=== PATIENT | male | born 1945 | race Caucasian/White ===

== ENCOUNTER 2018-05-23 06:57 | Day surgery (SDC) ==
[2018-05-23] MEDS ORDERED: LIDOCAINE 1% 20 ML MDV ID STA (07:17)
[2018-05-23] MEDS ORDERED: LIDOCAINE HCL 2% LUER-JET ONE (08:05)
[2018-05-23] MEDS ORDERED: VERSED ONE (08:05)
[2018-05-23] MEDS ORDERED: DIPRIVAN 20 ML VIAL IVP ONE (08:05)
[2018-05-23 09:39] VITALS: BP 122/56; TEMP 98.6
--- NOTE | 2018-05-24 07:39 | OP ---
PROCEDURE: EGD (ESOPHAGOGASTRODUODENOSCOPY) WITH TAPIA DILATATION. ENDOSCOPIST: Teresa ROSEN M.D. INDICATION: DYSPHAGIA INSTRUMENT: [id number]. TAPIA DILATOR 50 PERSIAN MEDICATION: PER ANESTHESIA. PROCEDURE: The patient was positioned for endoscopy. The oropharynx was sprayed with Cetacaine spray and the endoscope was advanced through the bite block into the esophagus and from there advanced to the duodenum. The duodenum was normal. The pylorus was patent. The antrum was normal. Retroflex exam reveals normal cardia. The Z-line was at 40cm. No evidence for mass or strictures. The remaining esophagus was normal. A 50 [place] Tapia was passed without difficulty. The patient tolerated the procedure well without immediate complications. PLAN: 1. If continues with symptoms will get a Barium Esophagram 2. Consider esophageal motility testing as well. Suspect this is a esophageal dysmotility issue. CC: Dr. Edi RYAN
== END 2018-05-23 09:00 | disposition home or self-care (01) ==
LOC: SURG 06:57
PROVIDERS: ATTEND Internal Medicine Gastroenterology
DX: R13.10 Dysphagia, unspecified (principal)

== ENCOUNTER 2019-02-02 08:34 | Outpatient (RCR) | payer OTHER ==
--- NOTE | 2019-02-02 15:59 | RS.OPPTEV2 ---
Date of Note: 02/02/19 Visit #: 1 Number of visits approved by Insurance: n/a Date of Evaluation: 02/02/19 Payer Source: MEDICARE Surgery Performed?: No Treatment Diagnosis: BLE pain, muscle weakness, balance impaired History of Condition/Mechanism of Injury:: Pain in BLE's began approx oct 2018. Pain is from buttocks to calf BLE L worse than RLE. No definite injury noted. Prior Level of Function.....Patient was independent with: ADL's, Self Care, Ambulation/Mobility, Community Integration/Access Functional Limitations: Ambulation, Community Access/Integration Current Subjective/complaints:: pt states that he doesn't know why MD sent him for low back, states his back does not hurt that it is his legs and they only hurt when he walks. pt voiced frustration that he had to pay for MRI when his back doesn't hurt. Treatment Side (optional): Bilateral *Precautions: n/a Medical History Medical History: Hypertension, Diabetes, Arthritis Surgical History Comments:: cataract surgery Smoking Status: Former smoker Diagnostic Testing/Imaging:: MRI lumbar spine: Degenerative changes in the lower lumbar area but no disc herniation, there is moderate spinal stenosis at L4-5 primarily due to facet hypertrophy. Hx Home Medications: Novolin insulin, metformin, nifedipine, lisinopril, metoprolol, tamsulosin, doxepin, aspirin Patient's Goals: decrease LE pain Pain Assessment - Pain Description Pain Location: BLE Pain Description: Aching Current Pain Intensity: 0 at rest, increases to 8/10 when walking longer distances. Functional Outcome Measure Oswestry LBP: 13 - G Codes & Severity Modifier G Codes & Modifier: n/a Source of G Code score: n/a Observation - Observation Inspection: pt with increased hamstring tightness L worse than R, as well as piriformis tightness and heel cord tightness. Pain in R foot in area of post heel. Posture: Forward Head, Rounded Shoulders, Increased Thoracic Kyphosis Handedness: Right Gait - Gait Pattern Gait Comments: pt amb with increased lat sway, decreased step length, decreased heel strike, with shuffling gait. pt wears shoes loose and they flop on his feet. Gait speed 0.74 meters/sec consistent with limited community ambulator. General Range of Motion: BUE WFL's. BLE WFL's Muscle Strength: BUE 5/5. BLE hip flex 4/5, knee flex/ext 4/5, ankle DF/PF 4+/5 - ROM Lumbar Flexion: Hand reach to Mid-Shins Sidebending to Left: Reach to Proximal Fibular Head Sidebending to Right: Reach to Proximal Fibular Head Comments: pt c/o mild discomfort in lumbar spine with flex, otherwise no c/o pain with ROM. - Strength Trunk Extension: 4 Good Trunk Flexion: 4- Good- Trunk Lateral Flexion: 4 Good - Special Tests AREN Test: Negative Left, Negative Right SLR Test: Positive Left, Positive Right SI Joint Compression: Negative Palpation Comments:: no areas of point tenderness or muscle guarding noted. Sensation - Sensation Right Upper Extremity: Intact/Normal Left Upper Extremity: Intact/Normal Right Lower Extremity: Intact/Normal Left Lower Extremity: Intact/Normal Balance - Sitting Balance Static Sitting Balance: Good Dynamic Sitting Balance: Good - Standing Balance Static Standing Balance: Good Dynamic Standing Balance: Fair Interventions - Exercise/Activities/Manual Therapy Exercises/Activities: pt received heel cord stretching R LE, hamstring stretching BLE, piriformis stretching . pt also performed BLE isometric hip add , resisted hip abd with green theraband and instructed on towel stretch for heel cord stretch. Manual Therapy: n/a HOME EXERCISE PROGRAM: pt given written HEP including: hamstring stretch, towel stretch, piriformis stretch, as well as resisted hip abd with green t band, and isometric hip add - Charges Timed Code Treatment Minutes: 52 Total Treatment Time: 61 Procedures billed for this date of service:: eval med, ex EVALUATION COMPLEXITY LEVEL EVALUATION COMPLEXITY LEVEL: HISTORY: Medium (OA, DM, HTN, ), EXAM OF BODY SYSTEMS: Medium (pain, strength, balance, muscle tightness), CLINICAL PRESENTATION: Medium, CLINICAL DECISION MAKING: Medium Assessment Assessment: pt presents with decreased strength BLE, decreased flexibility in hamstrings, piriformis, and R heel cord, decreased gait safety and decreased balance. pt with increased pain in BLE if amb longer distances > 200ft. Patient Education: Home Exercise Program, Education of Plan of Care Rehab Potential: Good Short Term Goals Goal #1: pt independent with initial HEP Goal to be met by: 02/17/19 Goal #2: Improve BLE strength 4 to 4+/5 Goal to be met by: 02/17/19 Goal #3: Improve hamstring/piriformis flexibility BLE Goal to be met by: 02/17/19 Goal #4: pt amb from car to dept and back without pain Goal to be met by: 02/17/19 Snf Goals Goal #1: pt report able to walk to and from mailbox without increased pain Goal to be met by: 03/03/19 Goal #2: pt with BLE flexibility WFL's Goal to be met by: 03/03/19 Goal #3: pt amb with improved posture and step length Goal to be met by: 03/03/19 Plan - Treatment to be Provided Procedures: Therapeutic Exercises, Therapeutic Activity, Gait Training, Manual Therapy, Massage, Patient Education Modalities: Cryotherapy, Hot Packs - Treatment Plan Frequency: 2 X week Duration: 4 weeks Dates of Hog Room Supervisor Goals: 03/03/19 Expiration date of current Insurance Approval:: n/a - Treatment Code (1) Pain in both lower extremities Code(s): M79.604 - PAIN IN RIGHT LEG (2) Muscle weakness Code(s): M62.81 - MUSCLE WEAKNESS (GENERALIZED) (3) Muscle tightness Code(s): M62.89 - OTHER SPECIFIED DISORDERS OF MUSCLE
== END 2019-02-03 23:59 ==
PROVIDERS: ATTEND Family Medicine
DX: M54.16 Radiculopathy, lumbar region (principal)

== ENCOUNTER 2019-02-10 16:38 | Outpatient (CLI) ==
--- NOTE | 2019-02-10 18:21 | DI ---
EXAM: Right calcaneus two views HISTORY: Pain COMPARISON: None. FINDINGS: There are moderate sized plantar and retrocalcaneal spurs. There is no acute fracture or bony erosion. The surrounding soft tissues are unremarkable IMPRESSION: Moderate sized plantar and retrocalcaneal spurs. No acute findings
== END 2019-02-10 16:39 | disposition home or self-care (01) ==
LOC: RAD 16:38
PROVIDERS: ATTEND Family Medicine
DX: M21.961 Unspecified acquired deformity of right lower leg (principal); M21.962 Unspecified acquired deformity of left lower leg